=== PATIENT | female | born 1965 | race Caucasian/White ===

== ENCOUNTER 2017-10-13 13:28 | Observation (INO) | payer BC ==
--- NOTE | 2017-10-12 12:13 | HP ---
PREOPERATIVE HISTORY AND PHYSICAL: DATE OF ADMISSION/SURGERY: 10/13/17 ATTENDING SURGEON: Jeff Cherry MD* (dictated by SILVIA Pro). PROCEDURE: I and D of right distal thigh and aspiration of knee with possible arthroscopic incision and drainage of the right knee. CHIEF COMPLAINT: Right leg pain. HISTORY OF PRESENT ILLNESS: Merlyn is a 52-year-old female who presents to the clinic for right lower leg pain. She was stepped on by a horse on . Since that time, she has had pain and swelling. She has difficulty weightbearing, but is able to walk. She has been icing and elevating with minimal release. She states that she has significant swelling in the entire leg , especially in the medial posterior aspect of the knee. She states that most of her pain is there. Her knee feels well otherwise. She has been going to work. She describes a throbbing in the back of her knee as constant. She rates it 4/10. She reports intermittent numbness and tingling in her toes and her swelling is worse. She denies back pain. She did have an open wound on the posterior aspect of her knee and she reports some yellow drainage, this is where the horse hit her. She is taking ibuprofen and hydrocodone for pain. She was given antibiotics, but was unaware and had recently started them, but had not done the full dose. She was sent for a Doppler ultrasound that was negative for DVT, but did show swelling in the medial distal thigh. The patient states it has gotten worse since the injury. She denies fever, chills, chest pain, shortness of breath, and is doing well otherwise. She has negative infection, therefore requires an incision and drainage of the right distal thigh , aspiration of the knee with possible arthroscopic incision and drainage of the right knee with Dr. Cherry on 10/13/17. PAST MEDICAL HISTORY: History of heart attack in 2009. She is doing well. Has no other medical conditions. She has not seen a spool worker in several years. PAST SURGICAL HISTORY: [place] teeth removal in 1979. Denies prior complications with anesthesia. MEDICATIONS: 1. Hydrocodone and acetaminophen 5/325, 1 to 2 every 4 to 6 hours as needed for pain. 2. Keflex 500 mg 1 by mouth 4 times a day. 3. Zolpidem tartrate 5 mg 1 by mouth daily. 4. Clindamycin phosphate 1% apply to face daily. 5. Ibuprofen 400 mg to 600 mg every 6 hours as needed for pain. 6. Hydrocortisone valerate 0.2% apply once a day as needed. ALLERGIES: SULFA ANTIBIOTICS, FLEXERIL, NICKEL, LATEX. FAMILY HISTORY: Positive for heart disease, hypertension, stroke, cancer, rheumatoid arthritis, and lupus. SOCIAL HISTORY: She lives with her son. 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 She denies tobacco use. She reports occasional alcohol consumption. She exercises regularly. She is right hand dominant. REVIEW OF SYSTEMS: A 14-point review of systems was reviewed with the patient. Positive for current complaint, night sweats, fatigue and anxiety, otherwise negative. Denies chest pain, shortness of breath, fever, chills, history of bleeding disorder, history of DVT or PE. PHYSICAL EXAMINATION GENERAL: A 52-year-old well-developed, well-nourished female, in no acute distress. Alert and oriented x3. Appropriate mood and affect. Appropriate balance and coordination of the lower extremities. EXTREMITIES: Right lower extremity: She has got an open wound on the medial aspect of her distal thigh near the knee that has active yellow drainage. There is fluctuance surrounding the open wound. The skin is numb to palpation, but she has tenderness when pushing on the abscess. She has significant swelling of the entire leg from the side to the foot. Her calf is swollen and soft and tender. Range of motion of the knee 45 to 90 degrees. +2 DP pulse. Sensation intact to light touch distally. Left lower extremity: Skin is intact. No warmth or erythema. Nontender to palpation. Full pain-free range of motion. Neurovascularly intact. STUDIES: Multi-view x-rays of the right lower leg revealed no evidence of acute fracture or dislocation, no obvious fracture of the knee, but there is fluid collection in the medial aspect of the distal thigh that was also seen on the Doppler ultrasound that was negative for DVT. IMPRESSION: Right distal thigh abscess. PLAN: The patient is scheduled to undergo an incision and debridement of the right distal thigh, aspiration of the knee with possible arthroscopic incision and debridement of the right knee with Dr. Cherry on 10/13/17. She was sent for a CBC, ESR, and CRP today prior to surgery. She will go to the OR tomorrow for a washout and possible drain placement. Dr. Cherry will aspirate her knee; if it looks infected, we will also wash that out. She was instructed not to take antibiotics at this point. Infectious Disease will be consulted. Postoperatively, the patient was told to call if she develops fever, chills, significant increase in pain and swelling, and she should go to the ER and we will do the washout tonight, otherwise we will do it tomorrow. The patient will follow up with Dr. Cherry 10 to 14 days postop. SILVIA PRO [id number]/[facility] #: [id number] MTDLuis Angel
[~2017-10-13 13:28] MED LIST: Buffered Lidocaine 0.9% SYRIN* 5 ML/SYR SYRINGE INTRADERM ONE; Dexamethasone IV* 4 MG/ML 1 ML (4 MG) IV SLOW PU ONE; Famotidine IV* 10 MG/ML 2 ML (20 mg) IV ONE
[2017-10-13] MEDS ORDERED: Dexamethasone IV* 4 MG/ML 1 ML (4 MG) ONE ×2 (13:30→13:49)
[2017-10-13] MEDS ORDERED: Famotidine IV* 10 MG/ML 2 ML (20 mg) ONE ×2 (13:30→13:49)
[2017-10-13] MEDS ORDERED: ceFAZolin 2 GM in 100 MLS NS (*) BAG IVPB ONE (13:30)
[2017-10-13] MEDS ORDERED: fentaNYL* 50 MCG/ML 2 ML VIAL (100 MCG VIAL) ONE (13:42)
[2017-10-13] MEDS ORDERED: Midazolam* 1 MG/ML 2 ML VIAL (2 MG) ONE (13:42)
[2017-10-13] MEDS ORDERED: Buffered Lidocaine 0.9% SYRIN* 5 ML/SYR SYRINGE ONE (13:49)
[2017-10-13] MEDS ORDERED: Metoclopramide IV* 5 MG/ML 2 ML VIAL ONE (14:13)
[2017-10-13] MEDS ORDERED: Ketorolac INJ* 30 MG/ML 1 ML VIAL ONE (14:13)
[2017-10-13] MEDS ORDERED: Ondansetron INJ* 2 MG/ML VIAL ONE (14:13)
[2017-10-13] MEDS ORDERED: Propofol* 10 MG/ML 20 ML BTL IV PUSH ONE (14:13)
[2017-10-13] MEDS ORDERED: fentaNYL* 50 MCG/ML 2 ML VIAL (100 MCG VIAL) IV PRN (14:25)
[2017-10-13] MEDS ORDERED: DiMENhydriNATE IV* 50 MG/ML VIAL IV PUSH PRN (14:25)
[2017-10-13] MEDS ORDERED: Naloxone* 0.4 MG/ML 1 ML VIAL IV PRN (14:25)
[2017-10-13] MEDS ORDERED: Lidocaine 2% PF * 5 ML VIAL ONE (14:33)
[2017-10-13] MEDS ORDERED: oxyCODONE TAB* 5 MG TAB PO PRN (15:44)
[2017-10-13] MEDS ORDERED: Polyethylene Glycol 3350* 17 GM PACKET PO PRN (15:44)
[2017-10-13] MEDS ORDERED: Bisacodyl SUPP* 10 MG SUPP PR PRN (15:44)
[2017-10-13] MEDS ORDERED: Ondansetron INJ* 2 MG/ML VIAL IV PRN (15:44)
[2017-10-13] MEDS ORDERED: traZODone TAB* 50 MG TAB PO PRN (15:44)
[2017-10-13] MEDS ORDERED: Ondansetron TAB* 4 MG PO PRN (15:44)
[2017-10-13] MEDS ORDERED: Morphine INJ* 2 MG/ML 1 ML CARPUJECT IV PRN (15:44)
[2017-10-13] MEDS ORDERED: Acetaminophen TAB* 325 MG PO PRN (15:44)
[2017-10-13] MEDS ORDERED: oxyCODONE/Acetamin 5/325 MG* TAB PO PRN (15:44)
[2017-10-13] MEDS ORDERED: diPHENhydraMINE PO* 25 MG PO PRN (15:44)
[2017-10-13] MEDS ORDERED: Magnesium Hydroxide LIQ* 30 ML UDC PO PRN (15:44)
[2017-10-13] MEDS ORDERED: Cyclobenzaprine TAB* 10 MG PO PRN (15:44)
[2017-10-13] MEDS ORDERED: Docusate CAP* 100 MG PO PRN (15:44)
[2017-10-13] MEDS ORDERED: diPHENhydraMINE IV* 50 MG/ML 1 ml VIAL (BENADRYL) IV PRN (15:44)
[2017-10-13] MEDS ORDERED: Ibuprofen TAB* 400 MG PO PRN (15:54)
[2017-10-13] MEDS ORDERED: Vancomycin per Pharmacy* NOTE FOLLOW UP SCH (16:00)
[2017-10-13] MEDS ORDERED: Vancomycin(*) 1,000 MG in NS 0.9% 250 ML* 250 ML IVPB SCH (16:00)
[2017-10-13] MEDS ORDERED: Vancomycin 1500 MG IV - x ONCE IVPB ONE ×2 (17:30)
[2017-10-13] MEDS: oxyCODONE/Acetamin 5/325 MG* TAB PO PRN ×2 (18:07→22:09)
[2017-10-13 20:18] LABS: EGFR Non-African American 73.7 (>60)
[2017-10-14] MEDS: oxyCODONE/Acetamin 5/325 MG* TAB PO PRN ×3 (01:54→13:39)
[2017-10-14] MEDS: Vancomycin(*) 1,000 MG in NS 0.9% 250 ML* 250 ML IVPB SCH ×2 (01:55→10:32)
[2017-10-14 05:47] LABS: ABS Basophils 0 10^3/ul (0-0.2); ABS Eosinophils 0 10^3/ul (0-0.6); ABS Monocytes 0.5 10^3/ul (0-0.8); ABS Neutrophils 7.4 10^3/ul (1.5-7.7); ABS Nucleated RBC 0 10^3/ul; Eosinophil % 0.2 % (0-6); Hematocrit 37 % (35-47); Hemoglobin 12.6 g/dl (12.0-16.0); Lymphocyte % 11.3 % (25-47); Mean Corpuscular HGB Conc 34 g/dl (31-36); Mean Corpuscular Hemoglobin 33 pg (27-31); Mean Corpuscular Volume 95 fL (80-97); Mean Platelet Volume 8 um3 (7.4-10.4); Nucleated Red Blood Cells % 0; Platelet Count 268 10^3/ul (150-450); Red Blood Count 3.86 10^6/ul (4.0-5.4); Red Cell Distribution Width 13 % (10.5-15); White Blood Count 8.9 10^3/ul (3.5-10.8)
[2017-10-14 06:04] LABS: EGFR Non-African American 87.2 (>60)
--- NOTE | 2017-10-14 06:47 | PN ---
Progress Note - Progress Note Date of Service: 10/14/17 SOAP: Subjective: Pt seen and examined. Feeling better. Has not had pain meds this AM Objective: Temp Pulse Resp BP Pulse Ox 97.9 F 54 16 97/58 98 10/14/17 03:49 10/14/17 03:49 10/14/17 03:49 10/14/17 03:49 10/14/17 03:49 NAD: RLE: dressing in place; SILT grossly distally; able to slightly flex/ext knee, dorsiflex/plantarflex ankle. Laboratory Results - last 24 hr 10/13/17 10/14/17 10/14/17 19:50 04:55 04:55 WBC 8.9 RBC 3.86 L Hgb 12.6 Hct 37 MCV 95 MCH 33 H MCHC 34 RDW 13 Plt Count 268 MPV 8 Neut % (Auto) 83.1 H Lymph % (Auto) 11.3 L Callahan % (Auto) 5.1 Eos % (Auto) 0.2 Baso % (Auto) 0.3 Absolute Neuts (auto) 7.4 Absolute Lymphs (auto) 1.0 Absolute Monos (auto) 0.5 Absolute Eos (auto) 0 Absolute Basos (auto) 0 Absolute Nucleated RBC 0 Nucleated RBC % 0 Sodium 136 Potassium 4.2 Chloride 106 Carbon Dioxide 26 Anion Gap 4 BUN 16 Creatinine 0.81 0.70 Est GFR ( Amer) 94.8 112.1 Est GFR (Non-Af Amer) 73.7 87.2 BUN/Creatinine Ratio 22.9 H Glucose 112 H Calcium 9.2 Microbiology 10/13/17 14:50 Tissue Wound Gram Stain - Preliminary 10/13/17 14:50 Tissue Acid Fast Bacilli Smear - Preliminary 10/13/17 14:50 Body Fluid Gram Stain - Final Assessment: A/P 52 yo F s/p I and D doing well Plan: ID consult today pull drain if no drainage. ROM as jemal, WBAT possible d/c today if stable
[2017-10-14 08:08] VITALS: BP 110/63
--- NOTE | 2017-10-14 11:27 | CONS ---
INFECTIOUS DISEASE CONSULTATION DATE OF CONSULTATION: 10/14/2017. REQUESTING PHYSICIAN: Dr. Cherry. CONSULTING SERVICE: Infectious Disease. REASON FOR CONSULTATION: Right leg hematoma. IMPRESSION: 1. Crush injury from a horse about three weeks ago with diffuse leg edema, ecchymosis, and a more fo yuriy area of erythema and swelling, proximal to the right knee, status post incision debridement. She had been on Keflex as an outpatient and gram stain showed 1+ neutrophils, no organisms. The culture s are negative at 24 hours. This could just be inflammation of a hematoma versus infected hematoma, i.e. abscess. 2. SULFA ALLERGY CAUSED ANAPHYLAXIS. RECOMMENDATIONS: 1. Augmentin 875 mg by mouth twice a day for 14 days. She will plan to follow-up with Dr. Dilip moon my office will contact her to set up an appointment in the next week or two. She notes to call if there is any worsening pain, swelling, redness, or if she develops fevers, chills, or sweats. HISTORY OF PRESENT ILLNESS: This 52-year-old woman who on September 25 was thrown off her horse. I t then stopped on her proximal to the right knee. She initially was seen at Urgent Care, has some wo und treatment and a wrapping. She then saw her primary who prescribed Keflex which she started takin g a couple days later. She had seen the primary because of worsening swelling throughout the right l eg with some numbness and a little bit of tingling behind the knee. She did not have worse pain with weightbearing of the knee. She had, despite the antibiotics, some increasing swelling proximal to t he knee. She was seen by Dr. Cherry who brought her into the hospital yesterday and had incision and debridement. Culture results as above. She has been on Vancomycin while she has been here, tolerat ing it well. She had had no fevers. PAST MEDICAL HISTORY: [place] teeth removal. MEDICATIONS: Tylenol, Cyclobenzaprine, Docusate as needed, ibuprofen as needed, Oxycodone, Vicodin, Vancomycin 1 gm every 8 hours. ALLERGIES: SULFA CAUSED ANAPHYLAXIS, FLEXERIL, NICKEL, LATEX. FAMILY HISTORY: No recurrent infections. SOCIAL HISTORY: She lives in [place]. 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 Also works in the [employer] in [place]. No travel or sick contacts. REVIEW OF SYSTEMS: All negative except as noted above. PHYSICAL EXAM: General: She is awake and no in distress. Vital Signs: Temperature 37, heart rate 5 0, respiratory rate 18, blood pressure 110/63, oxygen saturation 99 percent on room air. Neurologic: She is oriented times three, follows all commands. HEENT: There is no thrush. Neck: Supple witho ut mass. Heart: Regular rate and rhythm without murmurs, rubs, or gallops. Lungs: Clear to auscult ation bilaterally. Abdomen: Soft, nontender, nondistended. There are bowel sounds present. Skin: No rashes or splinter hemorrhages. Musculoskeletal: Right proximal thigh is wrapped. She has pictu res of it from this morning when it was undressed and the drain was removed. There is an intact inci sierra without swelling or erythema. The ecchymosis that was present before has resolved. LABORATORY DATA: Creatinine 0.7, white blood cell count 9, hemoglobin 12, platelets 268. Please see impression and recommendations as outlined above. Thank you for asking me to see Ms. Kirk in consultation. [id number]/[facility] #: [id number]
--- NOTE | 2017-10-14 11:53 | PN ---
Progress Note - Progress Note Date of Service: 10/14/17 Note: Patient was seen today at bedside, she feels and appears well. Her drain was removed without complication, she tolerated the procedure well. Wound well approximated with sutures intact. Bloody drainage present on dressing but no active drainage. No surrounding erythema, though patient does have obvious ecchymosis surrounding incision. She has been seen by infectious disease and will be discharged home with augmentin 875 mg BID x 2 weeks.
--- NOTE | 2017-10-14 13:50 | OP ---
CC: PCP OPERATIVE REPORT: DATE OF OPERATION: 10/13/17 DATE OF : 61 SURGEON: Jeff Cherry MD SERVICE EMPLOYEE: SILVIA Lobato An assistant activities director was needed for the entirety of the case to help with positioning, retraction and was uti lized all portions of the case. ANESTHESIOLOGIST: Dr. Carreon. PRE-OPERATIVE DIAGNOSES: Right thigh possible infected hematoma, possible knee infection. POST-OPERATIVE DIAGNOSES: Right thigh possible infected hematoma, possible knee infection. OPERATIVE PROCEDURE: Right distal thigh I and D with aspiration of the right knee. COMPLICATIONS: None. ESTIMATED BLOOD LOSS: Minimal. SPECIMENS: Tissue and fluid was sent to micro for Gram stain, anaerobic, aerobic, fungal and AFB. INDICATIONS: Merlyn Kirk is a 52-year-old female who was kicked by a horse and stepped on by a hor se several weeks ago. She was kicked by a horse and she had an abrasion. She noticed a lot of swell ing and pain. Initially, she just had bruising there. This subsequently grew and she started having more pain with weightbearing and walking. She presented to the clinic yesterday after being sent by her primary care doctor. She never took any antibiotics with it. She tried ice, heat, compression and rest, but continued to have issues, even pain with walking. She denies numbness or tingling. No fevers or chills. There is no evidence of vascular compromise. She had an ultrasound that demonstr ated no DVT, but large collection that extended into the popliteal space. After discussion with the patient of the risks and benefits of surgery, she elected to proceed with I and D. DESCRIPTION OF PROCEDURE: The patient was greeted in the preoperative area by the attending surgeon. Correct extremity was marked, consent was confirmed. The patient brought back to the operating chino te. She was placed in supine position on the operating table. She then underwent general anesthesia and LMA intubation after which the right leg was prepped and draped in usual sterile fashion beginni ng with chlorhexidine soap, scrub, and alcohol wipe and a final prep with ChloraPrep. After postsurgical pause indicating site, side, procedure and no administration of antibiotics until after cultures, the right knee was aspirated in the superior lateral portal and in the anterior later al portal to make sure that there was no fluid. There was no fluid return and it was just a dry tap. At this point, attention was directed to the medial distal thigh wound. She had areas of abrasions and there was eschar on different portions, this was debrided back using the blade. Finally, an inc ision was made in line at the most anterior abrasion, which was in the center of the fluid collection . Liquid hematoma that was not overly foul smelling then erupted from the swollen mass. This was th en drained. The incision was approximately 5 cm. Any debris or fluid was then removed. Tissue swabs were taken for Gram stain culture, anaerobic, aerobic, as well as some tissue samples for evaluation . The wounds were copiously irrigated with 9 L of sterile saline. With gentle aggravation of the ti ssue, there was no evidence of excess bleeding. There may have been damage to the hamstrings, but th ere was not any obvious tear or anything concerning. The wounds were copiously irrigated, the tissue s were aggravated to make sure there is good bony bleeding tissue. At this point, a Ashlee drain wa s placed. The wound was closed with 3-0 nylon in interrupted fashion. [place] drain was placed to t he wound. Sterile dressings were applied. She was awoke from anesthesia and transferred to PACU in stable condition. POSTOPERATIVE PLAN: She will be range of motion and weightbearing as tolerated. She will be admitted for postoperative antibiotics. Dr. Montemayor from [place] will be consulted. She will be on Ancef for no w unless the Gram strain culture changes the new medication. Pain will be controlled. DVT prophylax is was considered and she will have SCD's while she is inpatient as to low risk of DVT. I will see t he patient back in the office in 10 to 14 days. [id number]/[facility] #: [id number]
[2017-10-15] MEDS ORDERED: Vancomycin Trough Check NOTE FOLLOW UP ONE (09:30)
--- NOTE | 2017-10-15 23:13 | DS ---
DISCHARGE SUMMARY: DATE OF ADMISSION: 10/13/17 DATE OF DISCHARGE: 10/14/17 ATTENDING PROVIDER: Dr. Jeff Cherry.* (DICTATED BY SILVIA LEVI) RADIOLOGY TRANSCRIPTIONIST: SILVIA Lobato PRE-OP DIAGNOSIS: Right thigh possible infected hematoma, possible knee infection. OPERATIVE PROCEDURE: Right distal thigh I and D with aspiration of the right knee. HISTORY: Ms. Kirk is a 52-year-old female, who was kicked by and stepped on by a horse several weeks ago resulting in a lot of pain and swelling as well as bruising. Subsequently, she developed more pain with weightbearing and walking and after being seen at the clinic, it was deemed necessary that she undergo a right distal thigh I and D with aspiration of the right knee. HOSPITAL COURSE: The patient was admitted to [facility] on . She underwent a right distal thigh I and D with aspiration of the right knee without complication. She was seen by Infectious Disease as well. On exam , right lower extremity, her dressing was changed. Her drain was pulled. Incision was clean, dry, intact without surrounding erythema and without any purulence and without any discharge. The incision was well approximated and had ecchymosis surrounding. There was no fluctuance surrounding the incision. She was able to flex and extend the knee, dorsiflex and plantarflex the ankle. Sensation was intact grossly distally. Hemoglobin 12.6, hematocrit 37, white blood cell count 8.9. Infectious Disease recommends that she be placed on Augmentin 875/125 one every 12 hours for 2 weeks. The patient was deemed to be medically and orthopedically stable for discharge. Her vital signs on the day of discharge included temperature 98.3, pulse rate 59, respiratory rate 16, oxygen saturation 100%, blood pressure 100/63. DISCHARGE MEDICATIONS: Resume home medications, Augmentin 875 one tab every 12 hours for 2 weeks. DISCHARGE PLAN: The patient will be weightbearing as tolerated and range of motion as tolerated. She will take the hydrocodone/acetaminophen prescribed to her earlier this week for pain control as needed. She will take amoxicillin clavulanate 875/125 every 12 hours for 2 weeks. She will follow up with Dr. Cherry within 10 to 14 days, sooner with any symptoms or issues. ESPERANZA KIM, SILVIA [id number]/[facility] #: [id number] [facility] DIVISIONLuis Angel
== END 2017-10-14 14:05 | disposition home or self-care (01) ==
LOC: OR 13:28 → SSU 16:58 → INTOOBSV 16:58
PROVIDERS: ADMIT Orthopaedic Surgery; ATTEND Orthopaedic Surgery
PROC: 0H9HXZZ Drainage of Right Upper Leg Skin, External Approach (ICD-10-PCS; 2017-10-13)
PROC: 0S9C3ZZ Drainage of Right Knee Joint, Percutaneous Approach (ICD-10-PCS; principal; 2017-10-13 15:15)
DX: S80.01XA Contusion of right knee, initial encounter (principal); V80.010A Animal-rider injured by fall from or being thrown from horse in noncollision accident, initial encounter; Y93.52 Activity, horseback riding; Y92.9 Unspecified place or not applicable; Z79.899 Other long term (current) drug therapy; I25.2 Old myocardial infarction; Z88.2 Allergy status to sulfonamides; Z88.8 Allergy status to other drugs, medicaments and biological substances; Z82.49 Family history of ischemic heart disease and other diseases of the circulatory system; L02.415 Cutaneous abscess of right lower limb
CPT/HCPCS: 36415; 80048; 81025; 82565; 85025; 87070; 87073; 87077; 87102; 87116; 87186; 87205; 87206; 94760; 96365; A9270-GY; G0378; G8987-GO-CH; G8988-GO-CH; G8989-GO-CH; J1100; J1885; J2250; J2405; J2704; J2765; J3010; J3370

== ENCOUNTER 2017-10-15 14:58 | Emergency (ER) | payer BC ==
[2017-10-15] MEDS ORDERED: Ibuprofen TAB* 400 MG PO ONE (19:18)
[2017-10-15 21:17] VITALS: BP 122/66
--- NOTE | 2017-10-16 00:12 | CONS ---
CONSULTATION REPORT: DATE OF CONSULT: 10/15/17 REASON FOR CONSULTATION: Wound, right thigh. 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 Cherry at [facility]. With regards to the patient's entire history of this lesion, on 09/25/17, two weeks and 6 days ago, the patient fell off of a horse and the horse stepped on her including on the right thigh. The patient went to [facility] that day. The next week, the patient went to family medicine doctors. The patient saw several different physicians. The patient eventually had an ultrasound performed. The patient was eventually given some narcotics as well as antibiotics. The patient developed increasing pain about the right knee medially and posteriorly. She describes being able to feel a pulse and discomfort with it about the posterior right knee. The patient was eventually referred to Dr. Cherry who made the diagnosis on examination of an abscess at the distal medial right thigh. The patient was signed up for surgery. Inflammatory labs were obtained preoperatively and on the 10/13/17, the patient underwent an irrigation and debridement of the abscess. Prior to that, intraoperatively, the patient had an aspiration, attempted of the right knee joint but that was a dry aspirate. The patient had a 9 L of fluid put into the abscess wound. A Ashlee drain was placed. The patient was admitted overnight on IV antibiotics. The patient saw Dr. Montemayor yesterday 10/14/17. A Hammond drain was pulled, the patient was discharged home. The patient was converted to oral antibiotics, amoxicillin. The patient reported to me that cultures had been negative. I checked the cultures. One set of aerobic and the anaerobic show no organisms. One tissue culture demonstrates Staphylococcus simulans. Dr. Montemayor's consultation note from 10/14/17 even diagnosed that this was an inflamed hematoma versus an infected hematoma, in other words an abscess. According to Dr. Montemayor's note, the plan was for the patient to be on Augmentin b.i.d. x14 days. The patient was to be discharged, but to call with any worsening pain, swelling, redness or any fevers, sweats, chills. Dr. Cherry's operative note indicates that when the incision was made intraoperatively, the fluid that was expelled was not foul smelling. Dr. Cherry had mentioned this patient to me earlier today that she might be presenting to the emergency department. The patient denies any fevers, sweats, chills at home, but does describe an occasional "hot flash" that she has had for some time now predating this injury. PAST MEDICAL HISTORY: Myocardial infarction, 2008. PAST SURGICAL HISTORY: Extraction of wisdom teeth in 1979; irrigation and debridement, incision, right distal thigh hematoma versus abscess, 10/13/17. MEDICATIONS: 1. Augmentin. 2. Zolpidem. 3. Ibuprofen. ALLERGIES: SULFA ANTIBIOTICS, FLEXERIL, NICKEL, LATEX, KIWI FRUIT ALLERGENIC EXTRACT. REVIEW OF SYSTEMS: The patient denies any fever, sweats, chills. She does describe some decreased sensation about the incision site, both medial and lateral to it. No headache, nausea, or vomiting. No abdominal pain. No other joint pain. PHYSICAL EXAM: BMI 33.0. Vital signs as of 321 today, temperature 98.0 degrees Fahrenheit temporal, pulse 68, blood pressure 117/61, respiratory rate 14, oxygen saturation 100% on room air. No acute distress, alert and oriented, appropriate mood and affect, appropriate dress and hygiene, well-coordinated bilateral upper and lower extremities. The patient is nontoxic appearing. The patient appears comfortable, although she disliked seeing any blood and so she becomes a little uncomfortable when fluid is pointed out to her. Right lower extremity exam reveals an incision with 4 to [address] about the distal medial right thigh. There is some serosanguineous fluid about it on the skin. I applied pressure to the thigh about the incision and a significant quantity of fluid exited the incision, a free flow of fluid. No purulence noted. No pus. No significant erythema of the surrounding skin. No significant tenderness to palpation. The patient allowed me to express significant quantity of fluid without discomfort of significance. No clear effusion of the right knee. No pain whatsoever with passive range of motion of the right knee from 5 to 100 degrees of flexion. The patient had some minimal discomfort past the 100 degrees of knee flexion. The patient actively flexed and extended her knee without any discomfort. Neurovascularly intact distally with the exception of some decreased sensation in the immediate vicinity of the location of the incision, likely secondary to inflammation preoperatively. DIAGNOSTIC STUDIES/LAB DATA: ESR 18 on 10/12/17. Normal range 0 to 30. CRP 2.38 on same date with normal less than 5. White blood cell count 8.9. Anaerobic cultures from 10/13/17 are negative. Gram stains x2 show no organisms. One of the two aerobic cultures is growing Staphylococcus simulans. This is a routine skin organism, so may or may not represent some contaminant from the skin. No new labs obtained in the emergency room so far. ASSESSMENT: 1. Status post incision, irrigation and debridement, right distal medial thigh fluid collection, possibly infected, 10/13/[address] Cherry. 2. Right thigh draining wound with fluid collection deep to the closed incision PLAN: 1. Given the significant volume of fluid collected deep to the wound closure, I thought it best to allow that to drain on itself, on its own to best facilitate healing. 2. I therefore removed 2 of the stitches. This allowed the wound to be closed much more loosely. I expressed fluid from the wound. This was only mildly uncomfortable to the patient. 3. I discussed with the patient and her son options including sending the patient home to continue dry sterile dressing changes or a second irrigation and debridement operative or in the emergency room. I do not think another irrigation and debridement is required. No clear pus. The fluid should be able to drain on its own now that the wound is so loosely closed. 4. Before expressing all the fluid, I did obtain another culture, anaerobic and aerobic from the fluid pooled in the wound site. We can follow up on those cultures. 5. The patient should continue the Augmentin as prescribed by Dr. Montemayor. 6. The patient should otherwise continue plan of Dr. Cherry's of dry sterile dressing, change daily or more frequently if dressing is saturated. The patient will follow up with Dr. Cherry as previously scheduled. An exception to this would be if the patient developed fever, sweats, chills or if the patient developed increasing pain, swelling or erythema about the incision. Similar to the instructions to what the patient was told at discharge from hospital. 7. I will make Dr. Cherry fully aware of my treatment and plan. [id number]/[facility] #: [id number] MTDD
--- NOTE | 2017-10-16 14:37 | ED ---
Lai Tobar Sixian, scribed for Kaiser Watt MD on 10/15/17 at 1924 . Complex/Multi-Sys Presentation - HPI Summary HPI Summary: This patient is a 52 year old F presenting to ED with a chief complaint of drainage from her right knee since 0900 today. She was discharged yesterday s/p surgery from removal of hematoma on her right knee. Pt changed dressing today with moderate amount of serous drainage from the site. Patient called her Orthopedist to inquire and was recommended to come to the ED for follow up. Pt describes drainage as a clear liquid and blood mixture. The patient rates the pain 2/10 in severity. Symptoms aggravated by nothing. Symptoms alleviated by ibuprofen. Patient reports ability to ambulating with assistance of a cane. - History Of Current Complaint Chief Complaint: EDExtremityLower Time Seen by Provider: 10/15/17 19:00 Hx Obtained From: Patient Onset/Duration: Sudden Onset, Lasting Hours, Still Present Timing: Constant, Hours Aggravating Factor(s): nothing Alleviating Factor(s): ibuprofen - Allergies/Home Medications Allergies/Adverse Reactions: Allergies Allergy/AdvReac Type Severity Reaction Status Date / Time kiwi Allergy Severe Anaphylatic Verified 10/15/17 15:22 Shock Sulfa (Sulfonamide Allergy Severe Anaphylatic Verified 10/15/17 15:22 Antibiotics) Shock latex Allergy See Comment Verified 10/15/17 15:22 nickel Allergy Rash And Verified 10/15/17 15:22 Itching Home Medications: Home Medications Clindamycin 1% TOPICAL(NF) [Cleocin-T 1% TOPICAL(NF)] 1 % TOPICAL BID 10/15/17 [ History Confirmed 10/15/17] EPINEPHrine SYR* [EPINEPHphrine SYR*] 0.3 mg IM ONCE PRN 10/15/17 [History Confirmed 10/15/17] Hydrocortisone 0.5% CM(NF) [Hydrocortisone 0.5% CREAM(NF)] 1 applic TOPICAL BID 10/15/17 [History Confirmed 10/15/17] Ibuprofen TAB* [Motrin TAB* 600 MG] 600 mg PO TID PRN 10/15/17 [History Confirmed 10/15/17] Zolpidem TAB* [Ambien TAB*] 5 - 10 mg PO BEDTIME PRN MDD two tablets 10/15/17 [ History Confirmed 10/15/17] PMH/Surg Hx/FS Hx/Imm Hx Musculoskeletal History: Reports: Other Musculoskeletal History - right knee injury sustained by a horse - current issue Sensory History: Reports: Hx Contacts or Glasses - glasses Opthamlomology History: Reports: Hx Contacts or Glasses - glasses Neurological History: Reports: Hx Migraine - in her 30's - none since Psychiatric History: Reports: Hx Anxiety - no meds - Cancer History Hx Chemotherapy: No Hx Radiation Therapy: No - Surgical History Surgery Procedure, Year, and Place: wisdom teeth extraction at age 16 - [facility] Hx Anesthesia Reactions: No Infectious Disease History: No Infectious Disease History: Denies: Traveled Outside the [place] in Last 30 Days - Family History Known Family History: Negative: Hypertension, Diabetes - Social History Alcohol Use: Weekly Alcohol Amount: 2-3 glasses wine per week Substance Use Type: Reports: None Smoking Status (MU): Never Smoked Tobacco Review of Systems Negative: Fever Positive: Other - drainage from her right knee All Other Systems Reviewed And Are Negative: Yes Physical Exam - Summary Physical Exam Summary: Appearance: Well-appearing, no distress, Well-nourished Skin: Warm, color reflects adequate perfusion Head: Normal Head/Face inspection Eyes: Conjunctiva clear ENT: Normal inspection Neck: Supple, Respiratory: Lungs clear, Normal breath sounds, no respiratory distress Cardio: RRR, No murmur, pulses normal, brisk capillary refill. Distal pulses 2 plus Musculoskeletal: Strength Intact/ ROM intact. No edema. Right thigh surgical sutures in place. Mild erythema at surgical site. Nontender to palpation. Moderate amount ofSerosanguinous fluid expressed form surgical site Neuro: Alert, , sensory/motor intact Psychological: Normal Triage Information Reviewed: Yes Vital Signs On Initial Exam: Initial Vitals Temp Pulse Resp BP Pulse Ox 98 F 68 14 117/61 100 10/15/17 15:22 10/15/17 15:22 10/15/17 15:22 10/15/17 15:22 10/15/17 15:22 Vital Signs Reviewed: Yes Diagnostics - Vital Signs Vital Signs Temp Pulse Resp BP Pulse Ox 10/15/17 15:22 98 F 68 14 117/61 100 - Laboratory Lab Statement: Any lab studies that have been ordered have been reviewed, and results considered in the medical decision making process. Complex Multi-Symp Course/Dx Assessment/Plan: Pt seen and examined by Dr. Delacruz (Ortho) at bedside. Pt surgical sutures loosened with sterile dressing placed. Plan for continued home dressing changes with f/u in the clinic for further evaluation and tx. - Diagnoses Differential Diagnoses/HQI/PQRI: Other - postop drainage, infected hematoma, seroma Provider Diagnoses: Hematoma - Physician Notifications Discussed Care Of Patient With: Kings Delacruz Time Discussed With Above Provider: 19:30 Instructed by Provider To: MD Will See In ED - Consulted Dr. Delacruz who will come see the pt. Discharge - Discharge Plan Condition: Improved Disposition: HOME Patient Education Materials: Hematoma (ED) Referrals: Narayan Montana MD [Primary Care Provider] - Jeff Cherry MD [Medical Doctor] - (as scheduled) Additional Instructions: RETURN TO THE EMERGENCY DEPARTMENT FOR CHANGING OR WORSENING SYMPTOMS. The documentation as recorded by the Lai wu Sixian accurately reflects the service I personally performed and the decisions made by , Kaiser Watt MD.
== END 2017-10-15 21:17 | disposition home or self-care (01) ==
LOC: ED 14:58
DX: S80.01XA Contusion of right knee, initial encounter (principal); Y92.9 Unspecified place or not applicable; I25.2 Old myocardial infarction; W55.19XA Other contact with horse, initial encounter
CPT/HCPCS: 87070; 87073; 87205; 99282; A9270-GY

== ENCOUNTER 2017-10-22 12:10 | Day surgery (SDC) | payer BC ==
[2017-10-22] MEDS ORDERED: Buffered Lidocaine 0.9% SYRIN* 5 ML/SYR SYRINGE ONE (12:27)
[2017-10-22] MEDS ORDERED: ceFAZolin 2 GM PREMIX (*) 0 GM/0 ML BAG IVPB ONE (12:29)
[2017-10-22] MEDS ORDERED: ceFAZolin 2 GM PREMIX (*) 2 GM/50 ML BAG IVPB ONE (12:30)
[2017-10-22] MEDS ORDERED: Bupivacaine 0.5% SDV PF* 10-30ML VIAL ONE (14:09)
[2017-10-22] MEDS ORDERED: fentaNYL* 50 MCG/ML 2 ML VIAL (100 MCG VIAL) ONE ×2 (14:32→15:02)
[2017-10-22] MEDS ORDERED: Midazolam* 1 MG/ML 5 ML VIAL (5 MG) ONE (14:32)
[2017-10-22] MEDS ORDERED: Propofol* 10 MG/ML 20 ML BTL IV PUSH ONE (14:52)
[2017-10-22] MEDS ORDERED: Naloxone* 0.4 MG/ML 1 ML VIAL IV PRN (15:35)
[2017-10-22] MEDS ORDERED: oxyCODONE/Acetamin 5/325 MG* TAB PO PRN (15:35)
[2017-10-22] MEDS ORDERED: Ondansetron INJ* 2 MG/ML VIAL IV PRN (15:35)
[2017-10-22] MEDS ORDERED: Ketorolac INJ* 30 MG/ML 1 ML VIAL IV PRN (15:35)
[2017-10-22] MEDS ORDERED: Acetaminophen TAB* 325 MG PO PRN (15:35)
[2017-10-22] MEDS ORDERED: Ketorolac INJ* 30 MG/ML 1 ML VIAL ONE (15:44)
[2017-10-22 17:31] VITALS: BP 115/97
--- NOTE | 2017-10-25 02:30 | OP ---
DATE OF OPERATION: 10/22/17 - [facility] DATE OF : 61 SURGEON: Kings Delacruz MD PARKING METER INSTALLER: SILVIA Esquivel. A PA was required for the length of procedure for help with positioning, retraction, and VAC placement. ANESTHESIOLOGIST: Elena Oneill MD ANESTHESIA: Monitored anesthesia care, local anesthesia with approximately 20 cc of a 1:1 ratio of Marcaine 0.5% without epinephrine and Lidocaine 1% with epinephrine. PRE-OP DIAGNOSES: 1. Right thigh abscess versus draining hematoma. 2. Status post prior right thigh fluid collection, irrigation and debridement, 10/13/17, by Dr. Cherry. POST-OP DIAGNOSES: 1. Right thigh abscess versus draining hematoma. 2. Status post prior right thigh fluid collection, irrigation and debridement, 10/13/17, by Dr. Cherry. OPERATIVE PROCEDURE: 1. Incision, irrigation, and debridement right thigh abscess or draining hematoma, debridement skin and subcutaneous. 2. Negative pressure wound therapy application, VAC device, less than 50 cm square. ANTIBIOTICS: 2 g Ancef IV. IV FLUIDS: 900 cc crystalloid. Ksos-gf-olit time: 30 minutes until VAC was entirely assembled and operational. Irrigation of wound: 9 L normal saline. SPECIMEN: Aerobic and anaerobic cultures were obtained from the wound. IMPLANT: Vacuum-assisted closure, VAC device, installed. COMPLICATIONS: None. ESTIMATED BLOOD LOSS: Minimal. 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 The patient presented to Dr. Cherry's office originally with significant soft tissue swelling about the distal medial thigh and location where she had had a prior abrasion. The patient underwent an incision, irrigation, and debridement by Dr. Cherry on 10/13/17. That significantly reduced the swelling and pain. However, the patient had concerns about persistent drainage from that wound. I happened to be on-call and saw the patient 2 days postoperatively on 10/15/17. The patient had no purulence, but had serosanguineous drainage from her wound. I removed 2 of the stitches in the skin that have been placed by Dr. Cherry to allow for better drainage of that wound. The patient was on Augmentin postoperatively. Dr. Montemayor of the infectious disease service had been involved in the patient's care. Some exotic organisms had grown from cultures, but there was not a certainty as to whether this was an infection with an exotic organism found on a farm versus simply a draining hematoma. The patient continued to drain significant amounts of fluid and was concerned about this. No fevers, sweats, chills. The patient described going in the shower and the pocket of the tissue filling up with fluid and fluid soaking through the wound throughout the day and causing drainage on to floors and through clothes and all sorts of difficulty. I saw the patient in the office 10/21/17. She had a significant serosanguineous drainage with any sort of expression attempted about the wound. The patient had no purulence or pus present. The patient had no joint effusion and had no pain whatsoever with passive range of motion of the right knee from 5 to 90 degrees of flexion. The patient opted for repeat irrigation and debridement and placement of a vacuum- assisted closure VAC device. I discussed with Dr. Cherry the prior week the possibility of requiring this. I touched base with Dr. Monteamyor surgeries available after repeat washout. He requested additional cultures. The patient described a significant nausea, likely caused by the Augmentin, so was hoping for a change in antibiotics. Discussed risk and potential complications of surgery including bleeding, infection, nerve or blood vessel injury, persistent drainage, knee joint infection, knee pain, stiffness, arthritis. Specifically with the location of this wound and the application of the VAC device, I told the patient that it was possible that she might develop some saphenous nerve symptoms, irritation, decreased sensation. We obtained an MRI preoperatively that showed fluid about the medial and posterior distal thigh and knee level. DESCRIPTION OF PROCEDURE: In preoperative holding, the patient signed an operative consent. Operative extremity was marked in preoperative holding. The patient was taken to the operating room and placed supine in the operating room table. A tourniquet was applied to the right proximal thigh, but never inflated. The patient was sedated with monitored anesthesia care by Dr. Oneill. Dr. Oneill preferred to avoid general anesthesia and so local anesthesia was introduced at the start of the procedure, that was the plan. The right lower extremity was prepped and draped. A bump had been placed under the contralateral left hemipelvis. Surgical time-out was performed. Local anesthesia was introduced to the subcutaneous tissues all around the prior surgical incision. The previous stitches were removed with instruments that were then kept away from the field along with the stitches. We waited for local anesthesia to start anesthetizing. When local anesthetic was found to be working, the prior skin incision was extended both proximally and distally. Spread through subcutaneous tissues. No purulence was encountered. Only serosanguineous fluid. Digitally I moved in all directions, superficial and distal, from this wound, mostly medial and posterior. The plane of fluid was superficial to deep fascia. No connection into the knee joint palpated. Irrigated with fluid using cystoscopy tubing. Prior to irrigating, however, I obtained aerobic and anaerobic culture swabs, when I first extended my incisions and entered the deep space of the thigh. I irrigated with 9 L of fluid. Next, applied VAC device. Prior to my first layer of plastic wrap on the skin, I applied some benzoin to the skin to improve the seal. Negative pressure was applied. No holes were appreciated. We cleaned the skin about the plastic wrap. We applied the tubing to the portable VAC unit. The patient was awakened and lightened of sedation. Transferred to the PACU. DISPOSITION: The patient was transferred home. The patient was switched to Keflex, 4 times a day for a 10-day course because she had had the nausea on Augmentin. I made this decision after consulting with Dr. Montemayor. The patient will keep VAC device in place hooked to negative pressure, 125 mm. The patient will follow up for a wound check in 1 week postoperatively. She will also be scheduled for regular VAC changes with prison at home with a wound clinic depending on availability approximately every 4 days. [id number]/[facility] #: [id number] [facility]
== END 2017-10-22 17:36 | disposition home or self-care (01) ==
LOC: OR 12:10
PROVIDERS: ATTEND Orthopaedic Surgery
DX: S70.11XD Contusion of right thigh, subsequent encounter (principal); L02.415 Cutaneous abscess of right lower limb; Z88.2 Allergy status to sulfonamides; Z88.8 Allergy status to other drugs, medicaments and biological substances; Z91.048 Other nonmedicinal substance allergy status; Z91.040 Latex allergy status; Z98.890 Other specified postprocedural states; W19.XXXD Unspecified fall, subsequent encounter
CPT/HCPCS: 87070; 87073; 87077; 87186; 87205; J0690; J1885; J2250; J2704; J3010